=== PATIENT | male | born 1940 | race Caucasian/White ===

== ENCOUNTER 2020-07-28 08:36 | Outpatient (REF) | payer MEDICARE, SELFPAY ==
--- NOTE | ~2020-07-28 | MR_ITS ---
EXAMINATION: MR KNEE WITHOUT CONTRAST, LEFT CLINICAL INFORMATION: Severe pain, persistent pain. COMPARISON: X-ray of the left knee November 2019 TECHNIQUE: MRI of the knee without contrast was performed using routine sequences on a high-field scanner. FINDINGS: MENISCI: Medial Meniscus: There is some subtle intermediate increased signal in the posterior horn which appears to extend to the tibial articular surface on at least a single sagittal image 20 series 3 and 4. Findings are considered suspicious but not definitive for a small tear. Lateral Meniscus: Intact. LIGAMENTS: Cruciate: Intact. Collateral: Intact. EXTENSOR MECHANISM: Intact. ARTICULAR CARTILAGE/BONE: Patellofemoral Compartment: Normal. Medial Compartment: Normal. Lateral Compartment: Normal. JOINT FLUID AND BURSAE: Normal. MISCELLANEOUS: Mild nonspecific edema in the subcutaneous soft tissues anteriorly. MR/MR knee LT wo con IMPRESSION: Subtle findings in the medial meniscus suspicious but not definitive for a small meniscal tear.
--- NOTE | ~2020-07-28 | XR_ITS ---
EXAMINATION: LEFT LOWER EXTREMITY PRE-MRI. CLINICAL INFORMATION: History of metallic foreign body left lower extremity. COMPARISON: None TECHNIQUE: 2 views. FINDINGS: There are no radiopaque metallic foreign body seen in the left lower extremity. The visualized tibia and fibula the soft tissues unremarkable. XR/XR pre mri screening IMPRESSION: Unremarkable left lower tibia and fibula.
== END 2020-07-28 08:37 | disposition home or self-care (01) ==
LOC: HO.MRI 08:36
PROVIDERS: PCP Internal Medicine; Visit Provider Internal Medicine
DX: M25.562 Pain in left knee (principal)
CPT/HCPCS: 73721

== ENCOUNTER 2020-08-02 14:00 | Outpatient (REF) | payer MEDICARE, SELFPAY ==
--- NOTE | ~2020-08-02 | MR_ITS ---
EXAMINATION: MR LUMBAR SPINE WITHOUT CONTRAST CLINICAL INFORMATION: 80-year-old with complaints of low back pain and left hip pain. Evaluate for spinal stenosis, disc herniation. COMPARISON: None TECHNIQUE: MRI of the lumbar spine was obtained using routine sequences without contrast. FINDINGS: Coronal Alignment:?Mild lumbar dextrocurvature noted, convex to the right at approximately L3. Possible lower thoracic dextrocurvature. Sagittal Alignment:?Normal. Lumbosacral Junction:?Normal. Vertebral Bodies: Normal height. Bone Marrow: There is a 4 mm focus of signal loss in the superior articulating facet of L2 on the left which is statistically, likely a bone island. No suspicious marrow replacing process. Conus Medullaris:?Terminates at L1.?Morphology and signal is normal. Intradural Nerve Roots: Within normal limits. L5-S1: Feqxvutl-uh-pliixq disc space height loss asymmetric to the right with disc desiccation, type I and type II marrow signal changes along the endplates and tiny Schmorl's nodes. Slight disc bulging is noted with minimal spondylosis asymmetric to the right with hzcf-qy-qcykahtc facet hypertrophic change, right more than left, with moderate right-sided neural foraminal stenosis without significant canal stenosis. Disc bulging contacts the exiting right L5 nerve root. L4-L5: Mild loss of disc space height is noted with disc desiccation, with type II marrow signal changes along the endplates. There is mild diffuse disc bulging asymmetric to the left with the moderate bilateral facet arthropathy and ligamentum flavum thickening, with mild crowding of the subarticular zones bilaterally without significant central spinal canal stenosis. There is tkgv-mf-kbckmmrl bilateral neural foraminal stenosis, left more than right with disc bulging contacting the exiting left L4 nerve root. L3-L4: Moderate loss of disc space height is noted asymmetric to the left with disc desiccation and type I and type II marrow signal changes along the endplates with small Schmorl's nodes. There is a qqambhx-kx-osxdq subarticular extruded disc herniation with caudal migration and krovrofi-wo-hrevje mass effect on the dural sac centrally and asymmetric to the right of midline with narrowing of the right subarticular and lateral recesses. The right L4 nerve root is intradural at this level. There is a prominent dorsal epidural fat pad contributing to ddhglpjn-jv-srpbci central spinal canal stenosis. There is fvax-qg-thrqhzmq facet arthropathy and ligamentum flavum thickening, left more than right, with underlying disc bulging and left lateral foraminal disc herniation encroaching on the neural foramina, left more than right. There is a 1 cm ovoid focus of soft tissue signal which is isointense with disc material at the outer margin of the left neural foramen suggesting an extruded disc fragment which, in conjunction with the above findings, result in moderate impingement on the exiting left L3 nerve root and amwnaxvj-gm-qzxzsh left-sided foraminal compromise. L2-L3: Disc space height and signal are well-maintained. There is a small left-sided foraminal disc protrusion without neural impingement. No significant spondylosis. Minor facet arthropathy noted with mild left-sided neural foraminal narrowing. No significant canal stenosis. L1-L2: Aapa-tt-iebgelpw loss of disc space height and disc desiccation are noted with anterolateral spondylosis asymmetric to the right, with mild Schmorl's nodes and type I and type II marrow signal changes along the endplates. Tiny ockofcg-mj-tzdp central disc protrusion noted. Tiny right inferior foraminal disc protrusion. No significant facet arthropathy, canal or neuroforaminal stenosis. T12-L1: Disc space height and signal are well maintained with minor spondylosis. Mild disc degenerative change with disc desiccation and Schmorl's nodes at T11-12. Paraspinal/Retroperitoneal: The paraspinal soft tissues appear unremarkable. MR/MR lumbar spine wo con IMPRESSION: 1. Mild lumbar dextrocurvature. 2. Multilevel thoracolumbar DDD with multilevel spondylosis and disc bulging. Exkleyc-bn-awnzy subarticular extruded disc herniation with caudal migration at L3-4 with encroachment on the right lateral recess, with pntvdmsj-qf-iljnkf central spinal canal compromise at this level. 3. Disc bulging asymmetric to the left at L3-4 with left lateral foraminal/extraforaminal disc herniation and suspicion for a 1 cm extruded disc fragment adjacent to the outer margin of the left neural foramen, with compromise of the exiting left L3 nerve root as discussed above. 4. Multilevel bilateral facet arthropathy as discussed above. Moderate right-sided neural foraminal stenosis at L5-S1 and xdkt-ax-rdilqmcu neural foraminal stenosis at L4-5, left more than right. 5. Probable small bone island in the superior articulating facet of L2 on the left.
== END 2020-08-02 14:01 | disposition home or self-care (01) ==
LOC: HO.MRI 14:00
PROVIDERS: Visit Provider Internal Medicine
DX: M54.5 Low back pain (principal)
CPT/HCPCS: 72148

== ENCOUNTER 2020-08-07 07:39 | Outpatient (REF) | payer MEDICARE, SELFPAY ==
--- NOTE | ~2020-08-07 | XR_ITS ---
EXAMINATION: KNEE X-RAY CLINICAL INFORMATION: Knee pain COMPARISON: Left knee x-ray November 2019 TECHNIQUE: Standing AP view of both knees and lateral and sunrise view of the left kidney FINDINGS: Left knee: Bone alignment is normal. No fracture or dislocation is seen. Joint spaces are normal. There is no joint effusion. Standing AP view of the right knee is unremarkable. XR/XR knee LT 2V IMPRESSION: Unremarkable exam.
--- NOTE | ~2020-08-07 | XR_ITS ---
EXAMINATION: KNEE X-RAY CLINICAL INFORMATION: Knee pain COMPARISON: Left knee x-ray November 2019 TECHNIQUE: Standing AP view of both knees and lateral and sunrise view of the left kidney FINDINGS: Left knee: Bone alignment is normal. No fracture or dislocation is seen. Joint spaces are normal. There is no joint effusion. Standing AP view of the right knee is unremarkable. XR/XR knee standing BI IMPRESSION: Unremarkable exam.
== END 2020-08-07 07:40 | disposition home or self-care (01) ==
LOC: HO.HOSX 07:39
PROVIDERS: Visit Provider Orthopaedic Surgery
DX: M25.562 Pain in left knee (principal); M54.16 Radiculopathy, lumbar region
CPT/HCPCS: 73560; 73565; 99202

== ENCOUNTER → 2020-08-17 08:06 | Outpatient (BNVA) | payer MEDICARE, SELFPAY | PROVIDERS: PCP Internal Medicine; Visit Provider Anesthesiology | DX: M47.812 Spondylosis without myelopathy or radiculopathy, cervical region (principal); M50.30 Other cervical disc degeneration, unspecified cervical region; Z79.899 Other long term (current) drug therapy | CPT/HCPCS: 99202 ==

== ENCOUNTER 2020-08-20 18:21 | Inpatient (IN) | payer MEDICARE, SELFPAY ==
--- NOTE | 2020-08-20 | ECG_ITS ---
Test Reason : SOB Blood Pressure : / mmHG Vent. Rate : 066 BPM Atrial Rate : 066 BPM P-R Int : 152 ms QRS Dur : 094 ms QT Int : 382 ms P-R-T Axes : 050 010 020 degrees QTc Int : 400 ms Normal sinus rhythm Normal ECG When compared with ECG of 20-AUG-2020 21:25, No significant changes seen Referred By: Durna Arndt Electronically Signed By:Eliazar Arrington
--- NOTE | ~2020-08-20 | XR_ITS ---
EXAMINATION: XR CHEST CLINICAL INFORMATION: Hypoxia. COMPARISON: Chest radiograph dated 08/29/2020. TECHNIQUE: Frontal view of the chest was obtained. FINDINGS: Diffuse interstitial prominence with bibasilar airspace opacities, slightly increased when compared to the prior examination. No pleural effusion or pneumothorax. Stable cardiomediastinal silhouette. XR/XR chest 1V IMPRESSION: Mild interstitial prominence with bibasilar airspace opacities, slightly increased when compared to the prior examination.
--- NOTE | ~2020-08-20 | CT_ITS ---
EXAMINATION: CT CERVICAL SPINE WITH CONTRAST CLINICAL INFORMATION: Right arm weakness. COMPARISON: None TECHNIQUE: Axial images obtained through the cervical spine. Coronal and sagittal reformatted images are performed at the CT scanner This CT examination was performed using dose optimization techniques as appropriate, variously including the following: *Automated exposure control *Adjustment of mA and/or kV according to patient size (this includes techniques or standardized protocols for targeted exams where dose is matched to indication/reason for exam; i.e. extremities or head) *Use of iterative reconstruction technique DLP: 402 mGy-cm FINDINGS: The cervical vertebrae have normal height. No fracture bone destruction. There is multilevel degenerative spondylosis. There is cervical disc height narrowing from C2-C3 through the C5-C6 disc levels. Most significant at C5-C6 with areas near updl-fl-lcay contact of the endplates, irregularity of endplates and anterior and posterior endplate spurs. There is also bilateral multilevel facet joint arthrosis through these disc levels. This is most significant on the left at C2-C3 and on the right at C4-C5 and C5-C6. Spinal levels: C2-C3: Mild cervical disc height narrowing. No focal disc protrusion or central canal stenosis. Neural foramina are open. C3-C4: Marked cervical disc height narrowing. No focal disc protrusion. No central canal stenosis. Degenerative change of facet joints bilateral, worse on the left than the right. Mild narrowing of the right neural foramina. C4-C5: Marked cervical disc height narrowing. No focal disc protrusion. No central canal stenosis. Degenerative change of facet bilaterally. The neural foraminal are open. C5-C6: Severe cervical disc height narrowing. No focal disc protrusion. No central canal stenosis. Mild narrowing of the neural foramina bilaterally. C6-C7: Mild cervical disc height narrowing. No central canal stenosis. No focal disc protrusion. Neural foramina are open. C7-T1: Normal. CT/CT cervical spine w con IMPRESSION: Multilevel degenerative spondylosis of the spine. Mild narrowing of the neural foramina bilaterally at C5-C6 and mild narrowing of the right neural foramina at C3-C4. No focal disc protrusion or central canal stenosis.
--- NOTE | ~2020-08-20 | CT_ITS ---
EXAMINATION: CT PULMONARY EMBOLISM STUDY CLINICAL INFORMATION: Elevated d-dimer. Covid positivity. Hypoxia. COMPARISON: 08/20/2020. TECHNIQUE: Contiguous helical images of the chest were obtained following the administration of IV contrast. Multiplanar reconstructions were performed. MIPS were obtained and reviewed. DLP: 326 mGy-cm. CONTRAST: 65 mL of Omnipaque 350 were administered without incident. FINDINGS: The heart is of normal size. There is no pericardial effusion. The great vessels are unremarkable. Specifically, there is no pulmonary arterial filling defect. There is no CT evidence for pulmonary embolism. There are no chest wall masses. Review of lung windows demonstrates that there are neither pleural effusions nor pneumothoraces. Within both lower lobes, there is ground glass opacification within the posterior basal segments. There are no pulmonary parenchymal nodules. Limited evaluation of the upper abdomen demonstrates that the liver is of normal size and attenuation without focal lesions. Normal adrenal glands are identified. CT/CT angio chest PE protocol IMPRESSION: No CT evidence for pulmonary embolism. Automated exposure control (Care Dose) Adjustment of the mA and/or kv according to patient size (this includes techniques or standardized protocols for targeted exams where dose is matched to indication / reason for exam; i.e. extremities or head).
--- NOTE | ~2020-08-20 | XR_ITS ---
EXAMINATION: CR X-RAY SHOULDER 3 VIEW BILATERAL CLINICAL INFORMATION: Bilateral shoulder pain, decreased range of motion. COMPARISON: None TECHNIQUE: 3 views each of the bilateral shoulders were obtained. FINDINGS: There is no acute fracture or dislocation. The joint spaces are unremarkable. Tiny calcification is seen at the right rotator cuff insertion. The soft tissues are unremarkable. XR/XR shoulder RT min 2V IMPRESSION: 1. Tiny calcification at the right rotator cuff insertion is likely degenerative in nature. No acute abnormality or significant degenerative joint changes bilaterally.
--- NOTE | ~2020-08-20 | XR_ITS ---
EXAMINATION: XR CHEST CLINICAL INFORMATION: Covid follow-up COMPARISON: Chest x-ray August 12, 2020 TECHNIQUE: Frontal view of the chest was obtained. FINDINGS: Stable cardiac silhouette. Lung volumes are mildly decreased. Interval development of subtle coarsening of the interstitial markings within the left lower lobe with similar linear opacity of the right lung base. No pleural effusion or pneumothorax. XR/XR chest 1V IMPRESSION: Right basilar atelectasis with interval development/worsening of left basilar atelectasis versus viral infiltrate. Clinical correlation recommended.
--- NOTE | ~2020-08-20 | XR_ITS ---
EXAMINATION: XR CHEST CLINICAL INFORMATION: Chest pain and shortness of breath COMPARISON: None TECHNIQUE: Frontal view of the chest was obtained. FINDINGS: Aside from bibasilar atelectasis, no significant abnormality is noted involving the heart, lungs, mediastinum, bony thorax or soft tissues. XR/XR chest 1V IMPRESSION: Bibasilar atelectasis. No acute intrathoracic disease.
--- NOTE | ~2020-08-20 | CT_ITS ---
EXAMINATION: CT CHEST WITHOUT CONTRAST CLINICAL INFORMATION: Hypoxia. COMPARISON: Chest CT from 08/21/2020. Recent chest radiographs. TECHNIQUE: Multidetector volumetric CT imaging of the chest was done. Axial MIP volume rendering provided. Sagittal and coronal reformatted images were obtained. This CT examination was performed using dose optimization techniques as appropriate, variously including the following: *Automated exposure control *Adjustment of mA and/or kV according to patient size (this includes techniques or standardized protocols for targeted exams where dose is matched to indication/reason for exam; i.e. extremities or head) *Use of iterative reconstruction technique DLP: 249 mGy-cm FINDINGS: LUNGS AND PLEURA: Trachea and central airways are widely patent and normal in caliber. Compared to 08/21/2020, there are several new, scattered, patchy groundglass and/or airspace opacities in both lungs, including anterior right lung apex (image 87, series 7), posterior left apex, lingula and medial left upper lobe. Mild atelectasis in dependent aspect of each lower lobe. No significant pleural fluid is detected. No pneumothorax. CARDIOVASCULAR: The heart size is normal. Moderate atherosclerotic calcification of coronary arteries. Pulmonary arteries are normal in caliber. Thoracic aorta atherosclerosis without aneurysm. No pericardial effusion. MEDIASTINUM AND LOWER NECK: The esophagus and visualized portion of the thyroid gland are unremarkable. No mediastinal mass. No pneumomediastinum. LYMPHATICS: No axillary or internal mammary lymphadenopathy. The mediastinal lymph nodes are in the normal size range. No hilar lymphadenopathy. UPPER ABDOMEN: No acute abnormalities in the visualized portion of the upper abdomen. SKELETAL AND CHEST WALL: Mild spondylosis of the mid to lower thoracic spine. No suspicious bone lesion. CT/CT chest wo con IMPRESSION: * Compared to prior chest CT of 08/21/2020, there are several new patchy pulmonary opacities, likely from Covid pneumonia. * Atherosclerotic disease of coronary arteries and thoracic aorta without aortic aneurysm.
--- NOTE | ~2020-08-20 | XR_ITS ---
EXAMINATION: CR X-RAY SHOULDER 3 VIEW BILATERAL CLINICAL INFORMATION: Bilateral shoulder pain, decreased range of motion. COMPARISON: None TECHNIQUE: 3 views each of the bilateral shoulders were obtained. FINDINGS: There is no acute fracture or dislocation. The joint spaces are unremarkable. Tiny calcification is seen at the right rotator cuff insertion. The soft tissues are unremarkable. XR/XR shoulder LT min 2V IMPRESSION: 1. Tiny calcification at the right rotator cuff insertion is likely degenerative in nature. No acute abnormality or significant degenerative joint changes bilaterally.
--- NOTE | ~2020-08-20 | XR_ITS ---
EXAMINATION: XR CHEST CLINICAL INFORMATION: Intubated, central line COMPARISON: CT chest 08/30/2020, chest radiographs 08/30/2020, 08/29/2020 TECHNIQUE: Portable supine AP view of the chest is performed. FINDINGS: ET tube approximately 3.8 cm above gil. Right internal jugular central line tip at right atrium. There are subtle left perihilar and basilar airspace opacities again seen. No pneumothorax or pneumomediastinum demonstrated on this portable exam with supine positioning. Vascularity stable. The mediastinal contours and bony structures are unremarkable. XR/XR chest 1V IMPRESSION: 1. ET tube 3.8 cm above gli. 2. Right internal jugular central line tip at right atrium. 3. Left perihilar and bibasilar opacities similar to previous exam.
[2020-08-20 18:40] VITALS: BP 129/56; PULSE 67; RESP 18; TEMP 36.6; O2SAT 94; BMI 29.9
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
--- NOTE | 2020-08-20 20:52 | ECG_ITS ---
Test Reason : ARM PAIN Blood Pressure : / mmHG Vent. Rate : 070 BPM Atrial Rate : 070 BPM P-R Int : 150 ms QRS Dur : 082 ms QT Int : 372 ms P-R-T Axes : 025 010 021 degrees QTc Int : 401 ms Normal sinus rhythm Normal ECG When compared to the previous EKG of No significant changes seen Referred By: Duran Arndt Electronically Signed By:Eliazar Arrington
[2020-08-20] MEDS: Acetaminophen 325 MG TABLET 975 MG PO (21:00)
[2020-08-20] MEDS: oxyCODONE HCl Immed Release 5 MG TABLET PO (21:00)
[2020-08-20 21:09] LABS: MANUAL DIFF FLAG NO
[2020-08-20 21:10] LABS: Basophils Percent Auto 0.5 % (0-2); Eosinophils Absolute Auto 0.1 X10*3/uL (0.0-0.4); Eosinophils Percent Auto 1.3 % (0-4); Hematocrit 40.9 % (42-52); Hemoglobin 13.5 g/dl (14.0-18.0); Imm Gran Abs Auto 0.04 X10*3/uL (0.00-0.03); Lymphocytes Absolute Auto 1.2 X10*3/uL (1.2-4.9); Lymphocytes Percent Auto 29.8 % (20-40); Mean Corpuscular Hemoglobin 31.1 pg (27.0-33.0); Mean Corpuscular Volume 94.2 fL (80-98); Mean Platelet Volume 9.8 fL (9.4-12.4); Monocytes Absolute Auto 0.7 X10*3/uL (0.1-1.2); Monocytes Percent Auto 18.4 % (2-11); Neutrophils Absolute Auto 1.9 X10*3/uL (2.0-8.3); Platelet Count 136 X10*3/uL (160-400); Red Blood Count 4.34 X10*6/uL (4.60-5.80); Red Cell Distribution Width 13.5 % (11.0-16.0); White Blood Count 3.9 X10*3/uL (4.8-10.8)
[2020-08-20 21:22] LABS: D Dimer 229 NG/ML
[2020-08-20 21:34] LABS: Troponin-I High Sensitivity 5.9 ng/L (<3.5-35.0)
[2020-08-20 21:38] LABS: Alanine Aminotransferase 54 U/L (0-40); Albumin Level 4.4 g/dL (3.5-5.0); Alkaline Phosphatase 158 U/L (39-117); Anion Gap 18 (12-20); Aspartate Amino Transferase 47 U/L (5-37); Bilirubin Direct 0.4 mg/dL (0.0-0.5); Blood Urea Nitrogen 22 mg/dL (9-16); Calcium 8.4 mg/dL (8.4-10.2); Carbon Dioxide 23 mmol/L (22-29); Chloride 102 mmol/L (96-108); Creatinine Clr Calc Pharmacy 45.3; Estimated Glomerular Filt Rate 58; Glucose Random 96 mg/dL (60-115); Potassium 4.2 mmol/L (3.3-5.1); Sodium 139 mmol/L (135-145); Total Protein 7.2 g/dL (6.5-8.0)
[2020-08-20 23:55] VITALS: BP 152/56; PULSE 65; RESP 12; O2SAT 92
[2020-08-21] VITALS (9 sets, daily range): BP systolic 143–159; BP diastolic 52–64; PULSE 60–104; RESP 16–22; TEMP 36.2–36.4; O2SAT 91–96
--- NOTE | 2020-08-21 00:09 | PC.NURSE ---
PT AT REST, PT HAS NOT EXPERIENCED ANY CHEST PAIN WHILE IN ER. PT HAS AN EXISTING INJURY TO LEFT SHOULDER AND KNEE THAT HAS AN INCREASED PAIN LEVEL TODAY. INCREASED WITH MOVEMENT.
[2020-08-21] MEDS: oxyCODONE HCl Immed Release 5 MG TABLET PO ×3 (00:40→21:50)
[2020-08-21 01:02] LABS: IDNOW Serial# 9DD0AD1C
[2020-08-21 01:04] LABS: COVID-19 Test Positive (Negative)
[2020-08-21 01:25] LABS: Troponin-I High Sensitivity 6.7 ng/L (<3.5-35.0)
--- NOTE | 2020-08-21 01:53 | PC.NURSE ---
PT REPORTS WEAKNESS, DIZZINESS AND DYSPNEA WHEN STANDING TO USE URINAL. PT'S SPO2 DROPS TO MID 80'S WHEN SUPINE. PT BOOSED UP ON STRETCHER AND SEATED UPRIGHT, SPO2 IMPROVED TO 91%. PT'S SPO2 ON ROOM AIR HAS BEEN IN THE LOW 90'S WHILE IN ER.
--- NOTE | 2020-08-21 02:08 | PC.NURSE ---
PT WAS STANDING TO GET DRESSED AND SPO2 DROPPED TO 87% PT AMBULATED AROUND ROOM WITH PORTABLE SPO2 SENSOR, SPO2 REMAINED IN LOWER 90'S FOR LESS THAN 1 MINUTE, DROPPED TO MID 80'S PT DYSPNEIC AND TACHYPNEIC UNTIL RESTING BACK ON STRETCHER. MD ORDERED 2 LPM. PT'S SPO2 NOW 98% ON 2 LPM AND AT REST.
[2020-08-21] MEDS: 0.9 % Sodium Chloride 1,000 ML 999 ML IV (02:51)
[2020-08-21] MEDS: iohexoL 350 MG/ML 75 ML INFUS..BTL IV (03:02)
--- NOTE | 2020-08-21 07:24 | PC.NURSE ---
this rn in to see pt, vss, pt resting in bed requesting to stand. pt offered a chair and moved into recliner. pt sitting up watching tv- nad. aware of plan of care for admit. denied having any questions.
--- NOTE | 2020-08-21 07:59 | PC.NURSE ---
pt assisted to use urinal. 200cc output clear yellow urine
--- NOTE | 2020-08-21 09:54 | PC.NURSE ---
pt found ambulating around room. pt states he just wants to stand. pt redirected to chair, o2 95% on room air. pt assisted to use urinal 200cc output.
--- NOTE | 2020-08-21 11:19 | PM.IMHP ---
History of Present Illness Date of Service: 08/21/20 Chief Complaint: L leg / L shoulder pain This is a 80-year-old male with a past medical history as outlined below who presents to the hospital with complaints of left lower extremity and left shoulder pain which is chronic in nature but has progressively worsened. He also reports that he had trouble breathing and fevers at home and so he came to the emergency room. He reports that he has seen Orthopedics for his left knee pain and was subsequently referred to pain management as there was some disc herniation on the lumbar MRI as well. He reports that yesterday while he was sitting down in his chair he noted some sharp chest pains and associated shortness of breath. He also reported feeling feverish and so he came to the emergency room for further testing. He initially denies any known sick contacts, but upon further questioning he does report that his daughter whom he lives with may also have similar symptoms. He subsequent also reports that his granddaughter who is the pipeline superintendent for his daughter may have come down with COVID within the last 1-2 weeks. In the emergency room he was noted to be hypoxic on RA -- down to 89% which dropped to 87% on RA. He underwent a CTA of the chest which was negative for pulmonary embolism. He had too high sensitivity troponins which were flat. His pain did resolve but due to his hypoxia admission was requested. Review of Systems Review of Systems: General - denies fevers or chills, denies weakness or fatigue HEENT -denies blurred vision, denies headache, denies sore throat Cardiovascular - denies chest pain or palpitations, denies edema Respiratory - +SOB, +Cough - nonproductive Gastrointestinal - denies abdominal pain, nausea, vomiting, diarrhea - denies flank pain, denies dysuria, denies frequency or urgency Musculoskeletal - denies back pain, denies hip pain, denies knee pain, denies shoulder pain Neurological - denies any focal weakness or numbness Skin, denies any bruising or redness Psychiatric - denies any suicidal ideation, hallucinations, homicidal ideation Endocrinology - denies intolerance to hot / cold temperatures [facility] Medical History (Updated 08/21/20 @ 02:12 by Duran Arndt MD) Cervical radiculopathy Degeneration, intervertebral disc, cervical Hypercholesteremia Lumbar radiculopathy Spondylosis, cervical Surgical History (Updated 08/07/20 @ 08:30 by Caryl Sweeney CMA) Hx of tonsillectomy Social History (Updated 08/07/20 @ 08:31 by Caryl Sweeney CMA) Alcohol intake: never Smoked in Last 30 Days: No Use of substances other than those prescribed or required for medical reasons: No Advance Directives: No Advance Directives Information Provided: Yes Current occupational status: retired Meds Allergies Allergy/AdvReac Type Severity Reaction Status Date / Time No Known Allergies Allergy Mild NKA Verified 08/17/20 08:23 Active Medications: Current Medications Generic Name Dose Route Start Last Admin Trade Name Freq PRN Reason Stop Dose Admin Pharmacy Consult 1 each 08/21/20 02:27 Consult Rx Perform Med Rec MISCELLANE ONCE PRN Consult order Home Medications Medication Instructions Recorded Confirmed Last Taken Type naproxen 500 mg tablet 500 mg PO BID 08/17/20 08/21/20 Unknown History celecoxib 1 cap PO BID 08/21/20 08/21/20 Unknown History oxycodone 1 tab PO TID PRN 08/21/20 08/21/20 Unknown History simvastatin 1 tab PO DAILY 08/21/20 08/21/20 Unknown History Physical Exam Vital Signs and Narrative: Vital Signs: Last Vital Signs Temp 97.5 F 08/21/20 02:11 Pulse 78 08/21/20 09:51 Resp 16 08/21/20 09:51 BP 154/64 H 08/21/20 07:23 Pulse Ox 95 08/21/20 09:51 Body Mass Index 29.9 Const: Other: Constitutional - Awake and Alert, No apparent distress Eyes - PERRLA, EOMI Cardiovascular - S1S2, RRR, No edema Respiratory - Rhonchi Gastrointestinal - NT / ND; +BS; No rebound or guarding - No CVA tenderness Extremities - no calf tenderness bilaterally, no swelling; LUE - unable to move about the Musculoskeletal - Normal inspection, normal ROM Skin - Warm/Dry Neurological - Alert & oriented x3, No focal deficit Psychological - Appropriate affect Results Labs CBC and Chem 7: 08/20/20 21:04 08/20/20 21:04 Labs: Laboratory Results - last 24 hr 08/20/20 08/20/20 08/20/20 21:04 21:04 21:04 MCV 94.2 MCH 31.1 MCHC 33.0 RDW 13.5 Plt Count 136 L MPV 9.8 Immature Gran % (Auto) 1.0 H Neut % (Auto) 49.0 Lymph % (Auto) 29.8 [place] % (Auto) 18.4 H Eos % (Auto) 1.3 Baso % (Auto) 0.5 Lymph # (Auto) 1.2 [place] # (Auto) 0.7 Eos # (Auto) 0.1 Baso # (Auto) 0.0 Abs Immat Gran (auto) 0.04 H Absolute Neuts (auto) 1.9 L Absolute Nucleated RBC 0.000 Nucleated RBC % (auto) 0.0 D-Dimer 229 Hold Blue Top SEE NOTE Anion Gap 18 Estim Creat Clear Calc 45.3 Estimated GFR 58 Random Glucose 96 Calcium 8.4 Total Bilirubin 1.0 Direct Bilirubin 0.4 AST 47 H ALT 54 H Alkaline Phosphatase 158 H Troponin I High Sens Total Protein 7.2 Albumin 4.4 COVID-19 ([facility]) COVID-19 Clin Com 08/20/20 08/21/20 08/21/20 21:04 00:45 00:49 MCV MCH MCHC RDW Plt Count MPV Immature Gran % (Auto) Neut % (Auto) Lymph % (Auto) [place] % (Auto) Eos % (Auto) Baso % (Auto) Lymph # (Auto) [place] # (Auto) Eos # (Auto) Baso # (Auto) Abs Immat Gran (auto) Absolute Neuts (auto) Absolute Nucleated RBC Nucleated RBC % (auto) D-Dimer Hold Blue Top Anion Gap Estim Creat Clear Calc Estimated GFR Random Glucose Calcium Total Bilirubin Direct Bilirubin AST ALT Alkaline Phosphatase Troponin I High Sens 5.9 6.7 Total Protein Albumin COVID-19 ([facility]ILA) Positive A COVID-19 Clin Com See Note Imaging Radiologist's Impressions: Impressions Chest X-Ray 08/20/20 20:56 IMPRESSION: Bibasilar atelectasis. No acute intrathoracic disease. Chest CTA 08/21/20 02:26 IMPRESSION: No CT evidence for pulmonary embolism. Automated exposure control (Care Dose) Adjustment of the mA and/or kv according to patient size (this includes techniques or standardized protocols for targeted exams where dose is matched to indication / reason for exam; i.e. extremities or head). Assessment and Plan (1) COVID-19: Status: Acute This is a 80-year-old male with a past medical history of hyperlipidemia, left shoulder pain, left lower extremity pain who presents to the hospital after feeling feverish with associated left chest pain and shortness of breath. He is diagnosed with COVID-19 causing respiratory failure with hypoxia. 1. Acute Respiratory Failure with hypoxia secondary to COVID 19 Desaturated to 87% on RA while in the ED, now improved continue decadron 6mg iv x 10 days total monitor inflammatory biomakers CTA negative for PE may need home O2 evaluation 2. Leukopenia / thrombocytopenia due to COVID monitor 3. Mild transaminitis due to COVID monitor hold statin 4. Chest pain resolved HS trop-I neg x 2 EKG without any acute changes Full Code DVT pptx, Ibisnox Nominates his daughter Emili as HCP
[2020-08-21] MEDS: 0.9 % Sodium Chloride Flush 3 ML SYRINGE IVFLUSH (14:29)
--- NOTE | 2020-08-21 18:17 | PC.NURSE ---
attempt to call for report no answer
--- NOTE | 2020-08-21 18:29 | PC.NURSE ---
report given to imc rn
--- NOTE | 2020-08-21 20:18 | PC.NURSE ---
messaged the admitting MD for two lidoderm patches and something to help the patient sleep per patient request.
[2020-08-21] MEDS: Acetaminophen 325 MG TABLET 650 MG PO (21:53)
[2020-08-22] VITALS (7 sets, daily range): BP systolic 143–165; BP diastolic 60–65; PULSE 61–88; RESP 17–22; TEMP 36.1–36.8; O2SAT 93–95
[2020-08-22] MEDS: 0.9 % Sodium Chloride Flush 3 ML SYRINGE IVFLUSH ×3 (00:03→15:31)
[2020-08-22] MEDS: Simethicone 80 MG TAB.CHEW PO ×3 (04:09→18:14)
[2020-08-22 06:06] LABS: MANUAL DIFF FLAG NO
[2020-08-22 06:26] LABS: Basophils Percent Auto 0.2 % (0-2); Hematocrit 39.7 % (42-52); Hemoglobin 13.3 g/dl (14.0-18.0); Imm Gran Abs Auto 0.04 X10*3/uL (0.00-0.03); Imm Gran Pct Auto 0.6 % (0.0-0.4); Lymphocytes Absolute Auto 1.3 X10*3/uL (1.2-4.9); Lymphocytes Percent Auto 20.5 % (20-40); Mean Corpuscular HGB Conc 33.5 g/dl (31.0-36.0); Mean Corpuscular Hemoglobin 30.9 pg (27.0-33.0); Mean Corpuscular Volume 92.1 fL (80-98); Mean Platelet Volume 10.9 fL (9.4-12.4); Monocytes Absolute Auto 0.8 X10*3/uL (0.1-1.2); Monocytes Percent Auto 13.5 % (2-11); Neutrophils Absolute Auto 4.1 X10*3/uL (2.0-8.3); Neutrophils Percent Auto 65.2 % (45-73); Platelet Count 178 X10*3/uL (160-400); Red Blood Count 4.31 X10*6/uL (4.60-5.80); Red Cell Distribution Width 13.2 % (11.0-16.0); White Blood Count 6.2 X10*3/uL (4.8-10.8)
[2020-08-22] MEDS: dexAMETHasone sod phosphate 4 MG/ML VIAL 6 MG IVPUSH (08:58)
[2020-08-22] MEDS: oxyCODONE HCl Immed Release 5 MG TABLET PO ×2 (08:59→21:49)
--- NOTE | 2020-08-22 11:24 | MHC.CM.PN ---
IMM 08/22/20 Male 80 DX Chest pain L arm pain He lives with his dtr. 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 While he is hospitalized, other DTRS are caring for her. He is independent with all functional mobility. DP home no services family will provide transportation. Pt reports that he has a HCP. A copy has been requested. CM will follow.
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
[2020-08-22] MEDS: Enoxaparin Sodium 40 MG/0.4 ML SYRINGE SUBCUT (15:27)
[2020-08-22] MEDS: Acetaminophen 325 MG TABLET 650 MG PO (21:49)
[2020-08-23] VITALS: BP 158/64; PULSE 68; RESP 18; TEMP 36.4; O2SAT 90
[2020-08-23] MEDS: 0.9 % Sodium Chloride Flush 3 ML SYRINGE IVFLUSH ×3 (00:19→15:54)
[2020-08-23] MEDS: Simethicone 80 MG TAB.CHEW PO ×4 (01:59→20:52)
[2020-08-23 04:00] VITALS: BP 148/60; PULSE 68; RESP 17; TEMP 36.8; O2SAT 98
[2020-08-23] MEDS: Acetaminophen 325 MG TABLET 650 MG PO ×3 (05:26→20:51)
[2020-08-23 07:32] VITALS: BP 162/72; PULSE 69; RESP 20; TEMP 36.6; O2SAT 93
[2020-08-23] MEDS: dexAMETHasone sod phosphate 4 MG/ML VIAL 6 MG IVPUSH (07:42)
[2020-08-23] MEDS: oxyCODONE HCl Immed Release 5 MG TABLET PO ×3 (07:42→22:02)
[2020-08-23 08:54] LABS: Basophils Percent Auto 0.1 % (0-2); Eosinophils Percent Auto 0.1 % (0-4); Hematocrit 43.3 % (42-52); Hemoglobin 14.9 g/dl (14.0-18.0); Imm Gran Abs Auto 0.09 X10*3/uL (0.00-0.03); Imm Gran Pct Auto 0.5 % (0.0-0.4); Lymphocytes Absolute Auto 1.2 X10*3/uL (1.2-4.9); Lymphocytes Percent Auto 6.7 % (20-40); MANUAL DIFF FLAG NO; Mean Corpuscular HGB Conc 34.4 g/dl (31.0-36.0); Mean Corpuscular Hemoglobin 31.6 pg (27.0-33.0); Mean Corpuscular Volume 91.7 fL (80-98); Mean Platelet Volume 10.2 fL (9.4-12.4); Monocytes Percent Auto 5.8 % (2-11); Neutrophils Absolute Auto 14.9 X10*3/uL (2.0-8.3); Neutrophils Percent Auto 86.8 % (45-73); Platelet Count 193 X10*3/uL (160-400); Red Blood Count 4.72 X10*6/uL (4.60-5.80); Red Cell Distribution Width 13.2 % (11.0-16.0); White Blood Count 17.2 X10*3/uL (4.8-10.8)
[2020-08-23 09:35] LABS: Blood Urea Nitrogen 37 mg/dL (9-16)
[2020-08-23 09:36] LABS: Anion Gap 18 (12-20); Calcium 8.8 mg/dL (8.4-10.2); Carbon Dioxide 22 mmol/L (22-29); Chloride 101 mmol/L (96-108); Creatinine Clr Calc Pharmacy 52.2; Estimated Glomerular Filt Rate > 60; Glucose Random 112 mg/dL (60-115); Potassium 4.4 mmol/L (3.3-5.1); Sodium 137 mmol/L (135-145)
[2020-08-23 11:41] VITALS: BP 133/58; PULSE 81; RESP 20; TEMP 36.5; O2SAT 95
--- NOTE | 2020-08-23 11:45 | MHC.CM.PN ---
CM spoke with Dtr Emili Castillo. She received an update re discharge. She has concerns re Dads weakness @ home once discharge. Emotional support and encouragement provided. DP home vs STR if indicated. CM will continue to follow.
[2020-08-23] MEDS: Enoxaparin Sodium 40 MG/0.4 ML SYRINGE SUBCUT (14:27)
[2020-08-23 15:09] VITALS: BP 153/69; PULSE 85; RESP 20; TEMP 36.6; O2SAT 95
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
[2020-08-23 19:10] VITALS: BP 151/78; PULSE 85; RESP 20; TEMP 36; O2SAT 93
--- NOTE | 2020-08-23 21:00 | PC.NURSE ---
Patient went to MRI at 8pm . Per MRI department pt was done as the last one d/t covit positive. Patient unable to tolerate MRI tonight due to a lot of burping ,unable to lay flat. Patent back to his room [id number].
[2020-08-23] MEDS: Calcium Carbonate 750 MG TAB.CHEW PO (22:43)
[2020-08-24] VITALS (7 sets, daily range): BP systolic 123–177; BP diastolic 61–76; PULSE 61–73; RESP 16–23; TEMP 35.9–36.5; O2SAT 92–96
[2020-08-24] MEDS: 0.9 % Sodium Chloride Flush 3 ML SYRINGE IVFLUSH ×3 (00:23→16:04)
[2020-08-24] MEDS: Acetaminophen 325 MG TABLET 650 MG PO ×2 (03:13→08:58)
[2020-08-24] MEDS: dexAMETHasone sod phosphate 4 MG/ML VIAL 6 MG IVPUSH (08:57)
[2020-08-24] MEDS: oxyCODONE HCl Immed Release 5 MG TABLET PO ×2 (08:58→23:50)
[2020-08-24] MEDS: Simethicone 80 MG TAB.CHEW PO ×3 (08:58→23:51)
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
[2020-08-24] MEDS: Enoxaparin Sodium 40 MG/0.4 ML SYRINGE SUBCUT (14:40)
--- NOTE | 2020-08-24 16:25 | MHC.CM.PN ---
JOHN MERLOS @ [facility]. He is accepted tomorrow, pending Auth
[2020-08-24 20:32] LABS: Alanine Aminotransferase 50 U/L (0-40); Albumin Level 4.4 g/dL (3.5-5.0); Alkaline Phosphatase 133 U/L (39-117); Aspartate Amino Transferase 63 U/L (5-37); Bilirubin Direct 0.3 mg/dL (0.0-0.5); Bilirubin Total 0.9 mg/dL (0.0-1.0); Total Protein 7.6 g/dL (6.5-8.0)
[2020-08-24] MEDS: Morphine Sulfate 2 MG/ML CARTRIDGE IVPUSH (21:32)
[2020-08-25] VITALS (7 sets, daily range): BP systolic 125–177; BP diastolic 60–78; PULSE 78–90; RESP 16–93; TEMP 36.3–36.8; O2SAT 92–97
[2020-08-25] MEDS: Acetaminophen 325 MG TABLET 650 MG PO ×4 (00:02→21:00)
[2020-08-25] MEDS: 0.9 % Sodium Chloride Flush 3 ML SYRINGE IVFLUSH ×4 (00:06→20:54)
[2020-08-25] MEDS: Calcium Carbonate 750 MG TAB.CHEW PO (05:29)
[2020-08-25 07:31] LABS: Alanine Aminotransferase 49 U/L (0-40); Albumin Level 4.2 g/dL (3.5-5.0); Alkaline Phosphatase 116 U/L (39-117); Aspartate Amino Transferase 31 U/L (5-37); Bilirubin Direct 0.4 mg/dL (0.0-0.5); Bilirubin Total 1.1 mg/dL (0.0-1.0); Total Protein 7.3 g/dL (6.5-8.0)
[2020-08-25] MEDS: Simethicone 80 MG TAB.CHEW PO ×2 (08:23→21:00)
[2020-08-25] MEDS: dexAMETHasone sod phosphate 4 MG/ML VIAL 6 MG IVPUSH (08:23)
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
[2020-08-25] MEDS: oxyCODONE HCl Immed Release 5 MG TABLET PO ×2 (14:24→23:42)
[2020-08-25] MEDS: Enoxaparin Sodium 40 MG/0.4 ML SYRINGE SUBCUT (14:24)
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
--- NOTE | 2020-08-25 16:07 | MHC.CM.PN ---
Did not receive insurance auth for today, discharge to [facility] is placed on hold. Patient , MD, nurse and dtr Emili aware.
--- NOTE | 2020-08-25 18:42 | PC.NURSE ---
Patient OOB frequently today with this RN and PT. Patient able to ambulate without O2 without complaints of SOB. In recliner for majority of the day.
[2020-08-26] VITALS (8 sets, daily range): BP systolic 121–169; BP diastolic 61–91; PULSE 80–105; RESP 15–20; TEMP 36.4–37.6; O2SAT 90–94
[2020-08-26] MEDS: Acetaminophen 325 MG TABLET 650 MG PO ×3 (04:47→19:55)
[2020-08-26] MEDS: Morphine Sulfate 2 MG/ML CARTRIDGE 1 MG IVPUSH (06:26)
[2020-08-26] MEDS: 0.9 % Sodium Chloride Flush 3 ML SYRINGE IVFLUSH ×3 (08:51→19:47)
[2020-08-26] MEDS: dexAMETHasone sod phosphate 4 MG/ML VIAL 6 MG IVPUSH (08:51)
[2020-08-26] MEDS: oxyCODONE HCl Immed Release 5 MG TABLET PO ×3 (09:02→22:22)
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
--- NOTE | 2020-08-26 12:09 | MHC.CM.PN ---
Addendum entered by Sharon Morales 08/27/20 08:40: ON 08/26/20@ 12:25 HOURS, CM RECEIVED A MESSAGE FROM [facility] INDICATING THE PTS INSURANCE COMPANY, [employer], HAD DENIED THE REQUEST FOR PT TO GO TO SHORT TERM REHAB. CM INFORMED THE HOSPITALIST WHO ATTEMPTED TO CONTACT [facility] ([phone]) TO REQUEST A PEER TO PEER REVIEW HOWEVER THEY WERE CLOSED UNTIL FRIDAY. PER HOSPITALIST, PT WILL REMAIN THROUGH THE WEEKEND AND ANOTHER ATTEMPT FOR A PEER TO PEER REVIEW WILL BE MADE ON FRIDAY. CM DID COMPLETE HCP WITH THE PT. OF NOTE, PT WAS PHYSICALLY UNABLE TO SIGN THE DOCUMENT, THEREFORE CM SIGNED AT HIS REQUEST WITH WITNESSES. PT NAMED HIS DAUGHTER, BUSHRA CRISOSTOMO HIS AGENT. COPY IN ALLSCRIPTS AND PTS CHART. Original Note: CM SPOKE TO PTS DAUGHTER, BUSHRA CRISOSTOMO ([phone]) WHO REPORTS SHE WAS AWARE THE PT WAS MEDICALLY CLEARED TO GO TO STR. SHE WAS INFORMED THE INSURANCE COMPANY STILL HAS NOT PROVIDED AUTHORIZATION. BUSHRA REPORTS THE PT DOES NOT HAVE A HCP COMPLETED. CM WILL OFFER PT ASSISTANCE IN COMPLETING ONE. PTS MEDICARE RIGHTS WERE REVIEWED IT HAS BEEN SEVERAL DAYS SINCE FIRST DELIVERED. BUSH[facility] REPORTS UNDERSTANDING AND A COPY WILL BE GIVEN TO PT. PT WILL DC TO [facility] PENDING INSURANCE AUTH.
[2020-08-26] MEDS: Enoxaparin Sodium 40 MG/0.4 ML SYRINGE SUBCUT (14:05)
[2020-08-26] MEDS: Simethicone 80 MG TAB.CHEW PO (17:25)
[2020-08-27] MEDS: Acetaminophen 325 MG TABLET 650 MG PO ×3 (01:36→18:53)
[2020-08-27 03:29] VITALS: BP 125/55; PULSE 91; RESP 20; TEMP 37.6; O2SAT 92
[2020-08-27] MEDS: oxyCODONE HCl Immed Release 5 MG TABLET PO ×3 (05:03→20:18)
[2020-08-27 07:22] VITALS: BP 148/65; PULSE 88; RESP 18; TEMP 37.2; O2SAT 90
[2020-08-27] MEDS: dexAMETHasone sod phosphate 4 MG/ML VIAL 6 MG IVPUSH (07:54)
[2020-08-27] MEDS: 0.9 % Sodium Chloride Flush 3 ML SYRINGE IVFLUSH ×3 (07:55→23:34)
[2020-08-27] MEDS: Simethicone 80 MG TAB.CHEW PO (08:06)
[2020-08-27 10:59] VITALS: BP 129/61; PULSE 80; RESP 18; TEMP 36.2; O2SAT 90
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
[2020-08-27] MEDS: Enoxaparin Sodium 40 MG/0.4 ML SYRINGE SUBCUT (12:25)
[2020-08-27 15:29] VITALS: BP 160/72; PULSE 97; RESP 19; TEMP 37.5; O2SAT 94
[2020-08-27 19:06] VITALS: BP 170/74; PULSE 105; RESP 20; TEMP 37.7; O2SAT 90
[2020-08-27 23:53] VITALS: BP 146/68; PULSE 91; RESP 18; TEMP 37.6; O2SAT 94
[2020-08-28] VITALS (7 sets, daily range): BP systolic 104–155; BP diastolic 60–79; PULSE 88–108; RESP 16–20; TEMP 36.3–37.6; O2SAT 90–95
[2020-08-28] MEDS: Acetaminophen 325 MG TABLET 650 MG PO ×2 (01:48→14:11)
[2020-08-28] MEDS: LORazepam 2 MG/ML VIAL 0.5 MG IVPUSH (02:54)
[2020-08-28] MEDS: oxyCODONE HCl Immed Release 5 MG TABLET PO ×5 (06:34→18:17)
[2020-08-28] MEDS: 0.9 % Sodium Chloride Flush 3 ML SYRINGE IVFLUSH (07:49)
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
[2020-08-28 12:50] LABS: COVID-19 Test Positive (Negative)
[2020-08-28] MEDS: Enoxaparin Sodium 40 MG/0.4 ML SYRINGE SUBCUT (14:11)
--- NOTE | 2020-08-28 14:20 | MHC.CM.PN ---
Per MD, Patient will be medically cleared for dc to STR/SNF today at 6 PM. Patient will dc to [facility] today at 6 PM, via [facility]. Patient/Daughter/HCP/Emili @ [phone] are aware of and in agreement with the dc plan. Last IMM addressed on 08/26/20.
[2020-08-28] MEDS: Simethicone 80 MG TAB.CHEW PO (15:46)
[2020-08-28] MEDS: polyethylene glycoL 3350 17 GM POWD.PACK PO (16:15)
--- NOTE | 2020-08-28 19:12 | PC.NURSE ---
Discharge cancelled today . Pt has new order for neurology consult to evaluate pt's weakness . Pt c/o sob ,oxygen saturation 90% on room air. Rehab was notified that pt is not being discharged today.Daughter Emili was notified that pt is not being discharged today ,she was updated on the plan of care
--- NOTE | 2020-08-28 20:22 | P.CONOP_ITS ---
History of Present Illness HPI Consult date: 08/28/20 Chief complaint: chest pain - left arm pain Narrative: This is a 80 yo male who is admitted to the medical service for acute respiratory distress, COVID-19 +. He recently started having right shoulder pain. He states he fell, leaning onto the right shoulder. He denies other injuries. He is right hand dominant. Denies left shoulder pain. No treatment on right shoulder that he can recall. Review of Systems Review of Systems: Yes all other systems are reviewed and are negative [facility] Past Medical History Medical History (Updated 08/25/20 @ 15:45 by Dave Mckeon MD) Cervical radiculopathy Degeneration, intervertebral disc, cervical Hypercholesteremia Lumbar radiculopathy Spondylosis, cervical Surgical History Surgical History Hx of tonsillectomy Social History Social History (Updated 08/07/20 @ 08:31 by Caryl Sweeney CMA) Household Members: Children Housing: House Do you presently have visiting nurse or other home services: No Alcohol intake: never Smoking Status: Never smoker Smoked in Last 30 Days: No Use of substances other than those prescribed or required for medical reasons: No Currently Displaying Signs/Symptoms of Drug Intoxication Withdrawal: No Have you been hit, kicked, punched, or otherwise hurt by someone within the past year? If so, by whom?: No Do you feel safe in your current relationship?: No Current Relationship Is there a partner from a previous relationship who is making you feel unsafe now?: No Are you made to feel afraid or neglected: No Advance Directives: No Advance Directives Information Provided: Yes Do you have thoughts of harming others: None Do you have a plan to hurt others: No Plan Recently lost weight without trying: Unsure service: Yes Current occupational status: retired Meds Allergies Allergy/AdvReac Type Severity Reaction Status Date / Time No Known Allergies Allergy Mild NKA Verified 08/17/20 08:23 Active Medications: Current Medications Generic Name Dose Route Start Last Admin Trade Name Freq PRN Reason Stop Dose Admin Acetaminophen 650 mg 08/21/20 13:52 08/28/20 14:11 Acetaminophen 325 Mg Tablet PO 650 mg Q6H PRN Administration Pain, Mild (Pain Scale 1-3) Calcium Carbonate 750 mg 08/23/20 22:24 08/25/20 05:29 Calcium Carbonate 750 Mg Tab.Chew PO 750 mg Q6H PRN Administration Gas Enoxaparin Sodium 40 mg 08/21/20 14:00 08/28/20 14:11 Enoxaparin Sodium 40 Mg/0.4 Ml Syringe SUBCUT 40 mg Q24H JERALD Administration Oxycodone HCl 5 mg 08/28/20 08:46 08/28/20 18:17 Oxycodone Hcl Immed Release 5 Mg Tablet PO 5 mg Q4H PRN Administration Pain, Severe (Pain Scale 7-10) Pharmacy Consult 1 each 08/21/20 02:27 Consult Rx Perform Med Rec MISCELLANE ONCE PRN Consult order Polyethylene Glycol 17 gm 08/28/20 15:45 08/28/20 16:15 Polyethylene Glycol 3350 17 Gm Powd.Pack PO 17 gm DAILY JERALD Administration Simethicone 80 mg 08/22/20 10:59 08/28/20 15:46 Simethicone 80 Mg Tab.Chew PO 80 mg QIDWMHS PRN Administration Gas Sodium Chloride 3 ml 08/21/20 16:00 08/28/20 15:46 0.9 % Sodium Chloride Flush 3 Ml Syringe IVFLUSH Not Given QSHIFT [facility] Home Medications Medication Instructions Recorded Confirmed Last Taken Type celecoxib 1 cap PO BID 08/21/20 08/21/20 Unknown History oxycodone 1 tab PO TID PRN 08/21/20 08/21/20 Unknown History simvastatin 1 tab PO DAILY 08/21/20 08/21/20 Unknown History Physical Exam Vital Signs: Vital Signs: Last Vital Signs Temp 97.3 F 08/28/20 19:14 Pulse 100 08/28/20 19:14 Resp 16 08/28/20 19:14 BP 115/62 08/28/20 19:14 Pulse Ox 95 08/28/20 19:14 Body Mass Index 29.9 Const: General: cooperative, comfortable, no acute distress, well developed and alert Extrem: Other: Right shoulder skin intact, tenderness along the bicipital groove. Pain with passive ROM, FF and Abduction. He has difficulty with AROM due to pain. NVI. xrays of the right shoulder negative for acute fractures or dislocations. Minimal degenerative changes. Results Labs Result Diagrams: 08/23/20 08:40 08/23/20 08:40 Labs: Abnormal lab results 08/28/20 Range/Units 12:30 COVID-19 (ATTILA) Positive A (Negative) H & H 08/20/20 08/22/20 08/23/20 Range/Units 21:04 05:32 08:40 Hgb 13.5 L 13.3 L 14.9 (14.0-18.0) g/dl Hct 40.9 L 39.7 L 43.3 (42-52) % All other labs normal. Procedures Joint Aspiration/Injection Joint Asp./Inject. 1: Side of body: right Joint Aspirated/Injected: shoulder (subacromial space injected) Ultrasound guidance: No Skin prep: other (Allcohol prep pap) Local anesthesia used: bupivacaine 0.5% (40 mg of depomedrol with 7cc of bupivacaine) Needle size used: 20G Medication injected, if any: Methylprednisolone Amount of medication injected (ml): 8 Patient tolerated procedure: well and no complications
[2020-08-29 03:26] VITALS: BP 133/64; PULSE 110; RESP 18; TEMP 38.2; O2SAT 90
[2020-08-29] MEDS: oxyCODONE HCl Immed Release 5 MG TABLET PO ×3 (04:22→19:22)
[2020-08-29 08:00] VITALS: BP 137/72; PULSE 88; RESP 20; TEMP 36.9; O2SAT 89
--- NOTE | 2020-08-29 10:56 | PM.NEUROCN ---
History of Present Illness Data of Consult Service Date: 08/29/20 Primary Care Provider: Chase Bravo MD HPI Reason for consult: Left arm pain and weakness - chronic This is 80-year-old man who was admitted with acute respiratory failure due to Covid 19 infection. I was asked to evaluate him because of chronic left upper extremity pain. The patient is to not very cooperative and the it didn't actually want to be examined and did not provide much information. He apparently had an injury in the past and has had chronic left upper extremity pain. Review of Systems Eyes: Eyes: Reports no additional eye complaints ENT: Reports system reviewed and no additional complaints, except as documented and Reports Normal hearing present Cardiovascular: Cardiovascular: Reports no additional cardiovascular complaints Respiratory: Respiratory: Reports no additional respiratory complaints Gastrointestinal: Gastrointestinal: Reports no additional gastrointestinal complaints Genitourinary: Genitourinary: Reports no additional male genitourinary complaints Musculoskeletal: Musculoskeletal: Reports no additional musculoskeletal complaints Integumentary/Breasts: Skin/Breast: Reports system reviewed and no additional complaints, except as docu Neurologic: Reports as per HPI and Reports Normal hearing present Psychiatric: Psychiatric: Reports as per HPI Endocrine: Endocrine: Reports no additional endocrine complaints Hematologic/Lymphatic: Hematologic/Lymphatic: Reports no additional hematologic/lymphatic complaints Allergic/Immunologic: Allergic/Immunologic: Reports no additional allergic/immunologic complaints [facility] Past Medical History Medical History (Updated 08/29/20 @ 11:00 by Emmanuel Frias MD) Cervical radiculopathy Degeneration, intervertebral disc, cervical Hypercholesteremia Lumbar radiculopathy Spondylosis, cervical Surgical History Surgical History Hx of tonsillectomy Social History Social History (Updated 08/07/20 @ 08:31 by Caryl Sweeney CMA) Household Members: Children Housing: House Do you presently have visiting nurse or other home services: No Alcohol intake: never Smoking Status: Never smoker Smoked in Last 30 Days: No Use of substances other than those prescribed or required for medical reasons: No Currently Displaying Signs/Symptoms of Drug Intoxication Withdrawal: No Have you been hit, kicked, punched, or otherwise hurt by someone within the past year? If so, by whom?: No Do you feel safe in your current relationship?: No Current Relationship Is there a partner from a previous relationship who is making you feel unsafe now?: No Are you made to feel afraid or neglected: No Advance Directives: No Advance Directives Information Provided: Yes Do you have thoughts of harming others: None Do you have a plan to hurt others: No Plan Recently lost weight without trying: Unsure service: Yes Current occupational status: retired Meds Allergies Allergy/AdvReac Type Severity Reaction Status Date / Time No Known Allergies Allergy Mild NKA Verified 08/17/20 08:23 Active Medications: Current Medications Generic Name Dose Route Start Last Admin Trade Name Freq PRN Reason Stop Dose Admin Acetaminophen 650 mg 08/21/20 13:52 08/28/20 14:11 Acetaminophen 325 Mg Tablet PO 650 mg Q6H PRN Administration Pain, Mild (Pain Scale 1-3) Calcium Carbonate 750 mg 08/23/20 22:24 08/25/20 05:29 Calcium Carbonate 750 Mg Tab.Chew PO 750 mg Q6H PRN Administration Gas Enoxaparin Sodium 40 mg 08/21/20 14:00 08/28/20 14:11 Enoxaparin Sodium 40 Mg/0.4 Ml Syringe SUBCUT 40 mg Q24H JERALD Administration Oxycodone HCl 5 mg 08/28/20 08:46 08/29/20 08:49 Oxycodone Hcl Immed Release 5 Mg Tablet PO 5 mg Q4H PRN Administration Pain, Severe (Pain Scale 7-10) Pharmacy Consult 1 each 08/21/20 02:27 Consult Rx Perform Med Rec MISCELLANE ONCE PRN Consult order Polyethylene Glycol 17 gm 08/28/20 15:45 08/28/20 16:15 Polyethylene Glycol 3350 17 Gm Powd.Pack PO 17 gm DAILY JERALD Administration Simethicone 80 mg 08/22/20 10:59 08/28/20 15:46 Simethicone 80 Mg Tab.Chew PO 80 mg QIDWMHS PRN Administration Gas Sodium Chloride 3 ml 08/21/20 16:00 08/28/20 23:00 0.9 % Sodium Chloride Flush 3 Ml Syringe IVFLUSH Not Given QSHIFT [facility] Home Medications Medication Instructions Recorded Confirmed Last Taken Type celecoxib 1 cap PO BID 08/21/20 08/21/20 Unknown History oxycodone 1 tab PO TID PRN 08/21/20 08/21/20 Unknown History simvastatin 1 tab PO DAILY 08/21/20 08/21/20 Unknown History Physical Exam Vital Signs: Vital Signs: Last Vital Signs Temp 98.5 F 08/29/20 08:00 Pulse 88 08/29/20 08:00 Resp 20 08/29/20 08:00 BP 137/72 08/29/20 08:00 Pulse Ox 89 L 08/29/20 08:00 Body Mass Index 29.9 Const: General: no acute distress, well developed, alert and awake Nutritional Appearance: well nourished Orientation/consciousness: oriented to person and oriented to place Limitations: no limitations HENMT: Head: Yes normal to inspection, Yes normocephalic and Yes atraumatic Ears: hearing grossly normal bilaterally General nose exam: Normal external nose present Face and sinus: Yes normal facial exam Mouth: Normal oral and palatal mucosa present Eyes: General: appearance normal, both eyes and all related structures Alignment and Position: alignment normal Periorbital: periorbital findings normal Eyelids: Yes eyelids normal Conjunctivae: conjunctivae normal Sclerae: sclerae normal Corneas: corneas normal Pupils: Equal, round and reactive pupils present and Pupil accommodation reflex normal EOM: EOMs intact bilaterally Direct Ophthalmoscopy: normal light reflex Neck: Neck: Yes normal visual inspection, Yes full ROM and Yes no meningeal signs Thyroid: Thyroid normal Carotids: normal carotid upstroke and bounding pulses Chest: Chest palpation & inspection: normal inspection of the chest Resp: Effort & Inspection: normal respiratory effort Auscultation: clear to auscultation bilaterally Cardio: Rate: regular rate Rhythm: regular rhythm Heart sounds: S1 normal heart sound present and S2 normal heart sound present Peripheral pulses: Peripheral pulses 2+ throughout GI: Inspection: Yes normal to inspection Percussion: Yes normal to percussion Auscultation: normal bowel sounds Rectal Exam - Male: Yes deferred Back/Spine/Pelvis: Cervical Spine: normal cervical lordosis and cervical ROM normal Thoracic/Lumbar Spine: thoracic and lumbar spine normal to inspection Skin: General skin exam: no rashes or lesions noted Neuro: Other: Left upper extremity weakness proximal greater than distal. Shoulder abduction is 2/5, Distal strength is 4 minus/5 General: oriented to person, oriented to place, tone normal, moves all extremities, Normal light touch and pain sensation, no meningeal signs, no focal motor deficits, CN's II-XI intact bilaterally, normal sensation to monofilament and deep tendon reflexes 2+ bilaterally Cranial nerves: Yes CN's II-XII intact bilaterally, Yes Equal, round and reactive pupils present, Yes Bilaterally intact EOM present, Yes Nystagmus not present, Yes Normal facial strength present, Yes Midline tongue present, Yes Normal gag reflex present, Yes Symmetric palate elevation present, Yes Normal hearing present and Yes Ability to bilaterally rotate head present Cognition (Neuro): normal cognition Speech: Other speech findings present (Neuro) Motor exam (neuro): no tremor noted, no asterixis, Motor fasciculations not present, Normal motor muscle tone present throughout and Motor abnormalities not present Sensory Exam: Bilaterally intact graphesthesia Deep tendon reflexes (DTR's): Right triceps reflex intensity grade: 2+, Left triceps reflex intensity grade: 2+, Rt Biceps (C5, C6): 2+, Left biceps reflex intensity grade: 2+, Right brachioradialis reflex intensity grade: 2+, Left brachioradialis reflex intensity grade: 2+, Right patellar reflex intensity grade: 2+, Left patellar reflex intensity grade: 2+, Right ankle reflex intensity grade: 2+ and Left ankle reflex intensity grade: 2+ Plantar Reflex Responses: downgoing: right, left and bilateral Pupils: Normal pupillary reactivity/response: bilateral Extrem: General: Yes normal to inspection, Yes normal exam except as noted and Yes no pedal edema Psych: Appearance: grossly normal Mental Status: mental status grossly normal Speech and movement: Normal speech and movement present and Clear speech present Affect: normal affect Attitude: cooperative Thought process: Normal thought process present Results Labs CBC & Chem 7: 08/23/20 08:40 08/23/20 08:40 Assessment and Plan (1) Cervical radiculopathy: Problem details: Probable left C56 radiculopathy Status: Acute MRI of the cervical spine if it has not been done. Depending on the results he may need epidural injections for pain block. Consider adding gabapentin 300 mg at bedtime (2) Degeneration, intervertebral disc, cervical: Status: Acute As above (3) COVID-19: Status: Acute
[2020-08-29 12:00] VITALS: BP 154/68; PULSE 110; RESP 20; TEMP 37.3; O2SAT 91
--- NOTE | 2020-08-29 12:49 | MHC.CM.PN ---
DP to [facility]. The Pt has had a Neuro consult. An MRI is recommended. The Pts Dtr Emili Castillo was contacted via phone for IMM delivery. Emiil stated that she is very upset re communication from Nursing. She requested a call from [facility] nurse manager subway. Lary Longo was notified via [employer]. including Dtrs contact information. The MD was notified. CM will follow.
[2020-08-29 15:11] LABS: Hemoglobin 13.7 g/dl (14.0-18.0); Mean Corpuscular Hemoglobin 30.5 pg (27.0-33.0); PLT CLUMP 1; Red Blood Count 4.49 X10*6/uL (4.60-5.80)
[2020-08-29 15:13] LABS: Hematocrit 40.7 % (42-52); Mean Corpuscular HGB Conc 33.7 g/dl (31.0-36.0); Mean Corpuscular Volume 90.6 fL (80-98); Mean Platelet Volume 12.1 fL (9.4-12.4); Platelet Count 106 X10*3/uL (160-400); Red Cell Distribution Width 14.3 % (11.0-16.0)
[2020-08-29 15:19] LABS: White Blood Count 30.1 X10*3/uL (4.8-10.8)
[2020-08-29 15:20] VITALS: BP 113/61; PULSE 70; RESP 20; TEMP 35.8; O2SAT 90
[2020-08-29] MEDS: Enoxaparin Sodium 40 MG/0.4 ML SYRINGE SUBCUT (15:34)
[2020-08-29] MEDS: Acetaminophen 325 MG TABLET 650 MG PO (15:41)
[2020-08-29 15:51] LABS: Alanine Aminotransferase 166 U/L (0-40); Albumin Level 3.2 g/dL (3.5-5.0); Alkaline Phosphatase 178 U/L (39-117); Aspartate Amino Transferase 103 U/L (5-37); Bilirubin Direct 2.5 mg/dL (0.0-0.5); Bilirubin Total 3.7 mg/dL (0.0-1.0); Total Protein 6.1 g/dL (6.5-8.0)
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
[2020-08-29 19:25] VITALS: BP 114/55; PULSE 108; RESP 20; TEMP 36; O2SAT 90
[2020-08-29] MEDS: 0.9 % Sodium Chloride Flush 3 ML SYRINGE IVFLUSH (21:38)
[2020-08-29 23:37] VITALS: BP 137/60; RESP 18; TEMP 37.2
[2020-08-30] VITALS (15 sets, daily range): BP systolic 79–106; BP diastolic 43–77; PULSE 54–140; RESP 18–39; TEMP 36.5–39.9; O2SAT 88–97
--- NOTE | 2020-08-30 | ECG_ITS ---
Test Reason : STEMI Blood Pressure : / mmHG Vent. Rate : 082 BPM Atrial Rate : 082 BPM P-R Int : 000 ms QRS Dur : 102 ms QT Int : 334 ms P-R-T Axes : 000 008 129 degrees QTc Int : 390 ms Atrial fibrillation with a competing junctional pacemaker ST elevation consider inferior injury or acute infarct ACUTE WI / STEMI Consider right ventricular involvement in acute inferior infarct Abnormal ECG When compared with ECG of 30-AUG-2020 08:51, Previous ECG has undetermined rhythm, needs review ST less elevated in Inferior leads ST no longer elevated in Anterior leads Referred By: Easton Polk Electronically Signed By:GARRETT RASHEED MD
--- NOTE | 2020-08-30 | ECG_ITS ---
Test Reason : ST ELEVTIONS Blood Pressure : / mmHG Vent. Rate : 081 BPM Atrial Rate : 000 BPM P-R Int : 000 ms QRS Dur : 086 ms QT Int : 370 ms P-R-T Axes : 000 018 132 degrees QTc Int : 429 ms Poor data quality, interpretation may be adversely affected Atrial fibrillation ST elevation consider inferior injury or acute infarct ST elevation consider anterior injury or acute infarct ACUTE CT / STEMI Consider right ventricular involvement in acute inferior infarct Abnormal ECG When compared with ECG of 20-AUG-2020 21:26, STEMI is now present Atrial fibrillation has replaced Normal sinus rhythm Referred By: Easton Polk Electronically Signed By:GARRETT RASHEED MD
[2020-08-30] MEDS: cefTRIAXone sodium 1 GM in 0.9 % Sodium Chloride 50 ML IV (00:35)
[2020-08-30] MEDS: Acetaminophen 325 MG TABLET 650 MG PO ×2 (04:22→06:00)
--- NOTE | 2020-08-30 05:09 | PC.NURSE ---
At 1:00 pt started to become hypoxic- 02 was in the mid 80s - pt was also tachy in the 130s and became more disoriented-MD notified. Pt was switched from 2L NC to 10L lo. Pts 02 came back to low 90's. Pt started to desat again and the 02 was increased to 15L via lo, respiratory was called and recommended staying with the lo at 15+. At 3:15 pts HR was still in the 130's MD notified. MD requested a rectal temp. Rectal temp was 103.8. PRN tylenol was given and the pt was cooled with many ice packs.
--- NOTE | 2020-08-30 05:33 | PM.EVENT ---
Event Note Date of Service: 08/30/20 Event Note: pt developed fever, hypoxia, and cultures rew gram =ve cocci. added vanco, and sepsis work up initiated
[2020-08-30] MEDS: Lactated Ringers 500 ML 1000 ML IVCONT ×2 (06:01→06:48)
[2020-08-30 07:00] LABS: Hematocrit 42.6 % (42-52); NRBC Pct Auto 0.1 /100WBC (0.0-0.2)
[2020-08-30 07:02] LABS: Hemoglobin 14.3 g/dl (14.0-18.0); Mean Corpuscular HGB Conc 33.6 g/dl (31.0-36.0); Mean Corpuscular Hemoglobin 31.1 pg (27.0-33.0); Mean Corpuscular Volume 92.6 fL (80-98); Mean Platelet Volume 13.4 fL (9.4-12.4); Red Cell Distribution Width 14.8 % (11.0-16.0)
[2020-08-30 07:32] LABS: PLT ABN DIST 1; Platelet Count 88 X10*3/uL (160-400)
--- NOTE | 2020-08-30 07:36 | PC.NURSE ---
Pt rectal temp at 05:30 was 103, MD notified and an additional dose of tylenol was given. Md also ordered LR 500ml at 1,000ml/hr. At 06:30 HR improved to 106 02 90% BP still down to 86/50. MD ordered an additional bolus of LR 500ml at 1,000 ml/hr. HR increased to 140-150s and pt changed to a flutter. Rectal temp was taken at 06:57 100.4. Reported information to day RN.
[2020-08-30 07:39] LABS: Anion Gap 26 (12-20); Blood Urea Nitrogen 105 mg/dL (9-16); Carbon Dioxide 20 mmol/L (22-29); Chloride 98 mmol/L (96-108); Creatinine Clr Calc Pharmacy 14.1; Estimated Glomerular Filt Rate 15; Glucose Random 145 mg/dL (60-115); Lactic Acid 5.9 mmol/L (0.5-2.0); Potassium 4.1 mmol/L (3.3-5.1); Sodium 140 mmol/L (135-145)
[2020-08-30 07:48] LABS: Atypical Lymph Absolute Manual 0.3 x10*3/uL; Atypical Lymphs Percent Manual 1 % (0-6); Band Neutrophils Percent 26 % (3-5); Lymphocytes Absolute Manual 0.3 X10*3/uL (0.6-4.8); Lymphocytes Percent Manual 1 % (20-40); Monocytes Absolute Manual 1.7 X10*3/uL (0.0-1.2); Monocytes Percent Manual 5 % (2-11); Neutrophils Absolute Manual 31.2 X10*3/uL (2.2-7.9); Neutrophils Percent Manual 67 % (45-73)
[2020-08-30 07:49] LABS: Large Platelet PRESENT; Platelet Estimate DECREASED (NORMAL); Platelet Morphology Comment NOTED; Toxic Vacuolation PRESENT
[2020-08-30] MEDS: 0.9 % Sodium Chloride 1,000 ML 999 ML IVCONT (07:49)
[2020-08-30 07:53] LABS: Howell Jolly Bodies PRESENT; Nucleated Red Blood Cells 1 /100WBC (0-0); RBC Morphology NOTED; Tear Drop Cells 1+ (0-2) /OIF
[2020-08-30] MEDS: vancomycin HCL 1,250 MG in 0.9 % Sodium Chloride 250 ML 166.67 MG IV (08:04)
[2020-08-30 08:39] LABS: Reflex Lactate? Lactic Acid Added
[2020-08-30] MEDS: propofoL 1,000 MG/100 ML VIAL 9.2 MG IVCONT (09:10)
[2020-08-30] MEDS: propofoL 200 MG/20 ML VIAL 100 MG IVPUSH (09:10)
--- NOTE | 2020-08-30 09:32 | PC.NURSE ---
Upon receiving report from overnight RN pt heart rhythm noted to be in the 140's this am with new onset of afib noted. Pt also hypotensive overnight on 2nd 500 cc ns iv bolus. fevers from 103.8 down to 100.8. sao2 in the low 90's on 15 l lo nc. Pt disoriented. Able to state name and vague with place. Overnight and daytime hospitalist made aware of pt condition. Third iv bolus of 1 L ordered and started. second peripheral iv started. vancomycin 1250 mg ordered. abg,stat chest ct. Further sepsis protocol workup also being ordered. multiple criticals received including wbc of 33.5, lactic of 5.9 and bun of 105. During stat chest ct heart rhythm down to 60's-70's with new onset st elevation. stat ekg ordered and transfer to icu. nurse to nurse complete. placed pt on 100% nonrebreather. nursing sound effects supervisor and graphic design manager notifed and assist with transfer.
[2020-08-30 09:38] LABS: ABG Base Excess -14.3 mmol/L; ABG HCO3 11 mmol/L (22-26); ABG pCO2 28 mmHg (32-45); ABG pCO2 TC 28 mmHg (32-45); ABG pH 7.21 (7.35-7.45); ABG pH TC 7.21 (7.35-7.45); ABG pO2 116 mmHg (83-108); ABG pO2 TC 117 (83-108)
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
--- NOTE | 2020-08-30 10:40 | W.PM.CCHP ---
Procedures Abscess I/D Consent for Procedure: Emergent-no informed consent obtained Central Line Placement Right IJ: Central Line Comments: Acute cardiogenic shock with need for pressors in CVP management and with ultrasound guidance and after sterile preparation easy entrance to the right internal jugular vein x1 without complication passing retrograde with Seldinger technique a J tipped guidewire over which dilator and then triple-lumen central venous pressure catheter and initial measurement was 13-14 mm mercury Consent for Procedure: Emergent-no informed consent obtained Time out performed: Yes Sterile Technique Used: Yes Patient placed on monitor/pulse ox: Yes MD prep: mask, gown and gloves Central line prep: Chlorhexidine scrub Ultrasound used for placement: Yes Central line lumen inserted: triple Post procedure: sutured in place, good blood return, all ports aspirated, flushed, capped and sterile dressing applied Post procedure x-ray: tip of catheter in good position and no pneumothorax seen Patient tolerated procedure: well and no complications Complications: none
[2020-08-30] MEDS: Midazolam HCl/NS 50 MG/50 ML PLAST..BAG IVCONT (10:46)
[2020-08-30] MEDS: Midazolam HCl/PF 2 MG/2 ML VIAL IVPUSH (10:46)
[2020-08-30] MEDS: Amiodarone HCL 900 MG in 0.9 % Sodium Chloride 500 ML 34.53 MG IVCONT (10:46)
--- NOTE | 2020-08-30 10:50 | W.PM.CCHP ---
Procedures Intubation Intubation Comments: Patient in acute hypoxemic respiratory failure with and evolving ST-elevation RI and intubation performed emergently with 7.5 ET tube using glide scope with excellent visualization of vocal cords passing through beautifully with bilateral breath sounds and excellent end-tidal CO2 response position confirmed on chest x-ray Consent for Procedure: Emergent-no informed consent obtained Time out performed: Yes Sedative: propofol Laryngoscope: fiber optic video scope ET tube size: 7.5 ET tube uncuffed: No Tube secured depth (cm): 25 Tube secured location: lips Tube placement confirmation: visualized tube passing through cords, equal breath sounds bilaterally, no breath sounds over epigastrium and confirmation by capnometry Patient tolerated procedure: well and no complications Intubation complications: none
--- NOTE | 2020-08-30 11:07 | MHC.CM.PN ---
Pt urgently transfered to ICU for cardiac intervention: will be life flighted to [facility] for further care. has been in contact with family.
[2020-08-30 12:28] LABS: White Blood Count 33.5 X10*3/uL (4.8-10.8)
--- NOTE | 2020-08-30 12:28 | P.CONCA_ITS ---
History of Present Illness History of Present Illness Date of Service: 08/30/20 Consult reason: other (STEMI, shock, respiratory failure) Chief complaint: chest pain - left arm pain Narrative: Fever involved in David's care at 08:30 when he was noted to have ST elevation on his telemetry monitoring. Subsequent 12 lead EKG confirmed anterior marked ST elevation along with involvement of the inferior wall. He was then transferred to ICU, was in respiratory distress and was immediately intubated by . He then quickly became hypotensive with sedation. He was in atrial fibrillation rapid ventricular response. Intravenous tPA was initiated due to his multiple medical issues, given positive blood cultures with Staph aureus lot yesterday marked leukocytosis as well as marked lactic acidosis and acute kidney injury. Patient continued to remain hypertensive. He was resuscitated with IV vasopressors initially with Marques-Synephrine and subsequently switched to Levophed prior to transfer to [facility]. Attempted to perform cardioversion x4 initially without amiodarone and subsequently after amiodarone bolus without successful conversion. Central venous line was placed in the right internal jugular vein by . His respiratory status improved after ventilation. Bedside echo was attempted to be performed was very poor quality. Reveals some septal hypokinesis however was in adequate study. On limited view the RV function appeared normal. Discussed with [facility] ICU team as well as [facility] Cardiology about patient's overall health status. Also discussed with patient's family. Patient's hemodynamic status improved after tPA infusion ST segment elevation improved with minor ST elevation still present in the inferior lead. Review of Systems Review of Systems: Yes Unobtainable due to mental condition PMFSH Past Medical History Medical History Cervical radiculopathy Degeneration, intervertebral disc, cervical Hypercholesteremia Lumbar radiculopathy Spondylosis, cervical Surgical History Surgical History Hx of tonsillectomy Social History Social History Household Members: Children Housing: House Do you presently have visiting nurse or other home services: No Alcohol intake: never Smoking Status: Never smoker Smoked in Last 30 Days: No Use of substances other than those prescribed or required for medical reasons: No Currently Displaying Signs/Symptoms of Drug Intoxication Withdrawal: No Have you been hit, kicked, punched, or otherwise hurt by someone within the past year? If so, by whom?: No Do you feel safe in your current relationship?: No Current Relationship Is there a partner from a previous relationship who is making you feel unsafe now?: No Are you made to feel afraid or neglected: No Advance Directives: No Advance Directives Information Provided: Yes Do you have thoughts of harming others: None Do you have a plan to hurt others: No Plan Recently lost weight without trying: Unsure service: Yes Current occupational status: retired [employer] Allergies Allergy/AdvReac Type Severity Reaction Status Date / Time No Known Allergies Allergy Mild NKA Verified 08/17/20 08:23 Active Medications: Current Medications Generic Name Dose Route Start Last Admin Trade Name Freq PRN Reason Stop Dose Admin Acetaminophen 650 mg 08/21/20 13:52 08/30/20 04:22 Acetaminophen 325 Mg Tablet PO 650 mg Q6H PRN Administration Pain, Mild (Pain Scale 1-3) Calcium Carbonate 750 mg 08/23/20 22:24 08/25/20 05:29 Calcium Carbonate 750 Mg Tab.Chew PO 750 mg Q6H PRN Administration Gas Ceftriaxone Sodium 1 gm/ 50 mls @ 100 mls/hr 08/29/20 22:00 08/30/20 01:30 Sodium Chloride IV Infused Q24H JERALD Infusion Vancomycin HCl 500 mg/ Sodium 110 mls @ 110 mls/hr 09/01/20 08:00 Chloride IV Q24H JERALD Alteplase, Recombinant 100 mg/ 100 mls @ 0 mls/hr 08/30/20 09:30 08/30/20 10:52 Sodium Chloride IV 100 mg/hr .Q0M JERALD 100 mls/hr Administration Protocol As Directed Amiodarone HCl 900 mg/ Sodium 518 mls @ 34.533 mls/hr 08/30/20 10:00 08/30/20 10:46 Chloride IVCONT 1 mg/min .Q15H1M JERALD 34.53 mls/hr Administration Protocol 1 MG/MIN Phenylephrine HCl 20 mg/ 252 mls @ 0 mls/hr 08/30/20 10:00 Sodium Chloride IVCONT .Q0M JERALD Protocol Per Protocol Midazolam HCl 50 mg in 50 mls @ 2 mls/hr 08/30/20 10:15 08/30/20 10:46 Versed IVCONT 2 mg/hr .Q24H JERALD 2 mls/hr Administration 2 MG/HR Norepinephrine Bitartrate 8 mg in 250 mls @ 0 mls/hr 08/30/20 10:15 08/30/20 10:50 Levophed IVCONT 0.3 mcg/kg/min .Q0M JERALD 43.12 mls/hr Administration Protocol Per Protocol Oxycodone HCl 5 mg 08/28/20 08:46 08/29/20 19:22 Oxycodone Hcl Immed Release 5 Mg Tablet PO 5 mg Q4H PRN Administration Pain, Severe (Pain Scale 7-10) Pharmacy Consult 1 each 08/21/20 02:27 Consult Rx Perform Med Rec MISCELLANE ONCE PRN Consult order Pharmacy Consult 1 each 08/30/20 05:28 Consult Rx Vancomycin Dosing MISCELLANE DAILY PRN Consult order Polyethylene Glycol 17 gm 08/28/20 15:45 08/30/20 08:05 Polyethylene Glycol 3350 17 Gm Powd.Pack PO Not Given DAILY JERALD Simethicone 80 mg 08/22/20 10:59 08/28/20 15:46 Simethicone 80 Mg Tab.Chew PO 80 mg QIDWMHS PRN Administration Gas Sodium Chloride 3 ml 08/21/20 16:00 08/30/20 07:49 0.9 % Sodium Chloride Flush 3 Ml Syringe IVFLUSH Not Given QSHIFT JERALD Sodium Chloride 3 ml 08/30/20 08:00 08/30/20 08:05 0.9 % Sodium Chloride Flush 3 Ml Syringe IVFLUSH Not Given QSHIFT [facility] Home Medications Medication Instructions Recorded Confirmed Last Taken Type celecoxib 1 cap PO BID 08/21/20 08/21/20 Unknown History oxycodone 1 tab PO TID PRN 08/21/20 08/21/20 Unknown History simvastatin 1 tab PO DAILY 08/21/20 08/21/20 Unknown History Physical Exam Vital Signs: Vital Signs: Last Vital Signs Temp 100.8 F H 08/30/20 08:05 Pulse 104 H 08/30/20 10:25 Resp 27 H 08/30/20 10:25 BP 103/43 L 08/30/20 10:25 Pulse Ox 97 08/30/20 10:25 Body Mass Index 29.9 Const: General: other (Sedated and intubated) HENMT: Head: Yes normocephalic and Yes atraumatic Neck: Neck: Yes trachea midline, Yes supple and Yes other (IJ line in the right knee with CVP 13-14 mm of mercury) Resp: Effort & Inspection: other (On mechanical ventilation) Auscultation: diminished lung sounds Cardio: Jugular venous distension: JVD Rhythm: abnormal rhythm irregularly irregular Heart sounds: S1 normal heart sound present and S2 normal heart sound present GI: Auscultation: normal bowel sounds Skin: General skin exam: no rashes or lesions noted Neuro: General: other (Cannot evaluate) Extrem: General: Yes no clubbing, cyanosis or edema Results Labs and Meds Result diagrams: 08/30/20 05:51 08/30/20 05:52 Lab results: Laboratory Results - last 24 hr 08/29/20 08/29/20 08/30/20 15:03 15:03 05:51 WBC 30.1 H* Cancelled RBC 4.49 L Cancelled Hgb 13.7 L Cancelled Hct 40.7 L Cancelled MCV 90.6 Cancelled MCH 30.5 Cancelled MCHC 33.7 Cancelled RDW 14.3 Cancelled Plt Count 106 L D Cancelled MPV 12.1 Cancelled Immature Gran % (Auto) Neut % (Auto) Lymph % (Auto) [place] % (Auto) Eos % (Auto) Baso % (Auto) Lymph # (Auto) [place] # (Auto) Eos # (Auto) Baso # (Auto) Abs Immat Gran (auto) Absolute Neuts (auto) Absolute Nucleated RBC 0.000 Cancelled Nucleated RBC % (auto) 0.0 Cancelled Neutrophils % (Manual) Band Neutrophils % Lymphocytes % (Manual) Atypical Lymphs % (Man) Monocytes % (Manual) Abs Neuts (Manual) Lymphocytes # (Manual) Atyp Lymphs # (Manual) Monocytes # (Manual) Nucleated RBCs Toxic Vacuolation Platelet Estimate Large Platelets Plt Morphology Comment RBC Morphology Tear Drop Cells Vel[place] Bodies Beeson Cells O2 Saturation ABG pH at Pt Temp ABG pH (Temp Correct) ABG pCO2 at Pt Temp ABG pCO2 (Temp Corrct ABG pO2 at Pt Temp ABG pO2 (Temp Correct ABG HCO3 ABG Base Excess (Actual) Sodium Potassium Chloride Carbon Dioxide Anion Gap BUN Creatinine Estim Creat Clear Calc Estimated GFR Random Glucose Lactic Acid Calcium Total Bilirubin 3.7 H Direct Bilirubin 2.5 H AST 103 H ALT 166 H Alkaline Phosphatase 178 H D Total Protein 6.1 L Albumin 3.2 L D 08/30/20 08/30/20 08/30/20 05:51 05:52 05:52 WBC 33.5 H* RBC 4.60 Hgb 14.3 Hct 42.6 MCV 92.6 MCH 31.1 MCHC 33.6 RDW 14.8 Plt Count 88 L MPV 13.4 H Immature Gran % (Auto) Cancelled Neut % (Auto) Cancelled Lymph % (Auto) Cancelled [place] % (Auto) Cancelled Eos % (Auto) Cancelled Baso % (Auto) Cancelled Lymph # (Auto) Cancelled [place] # (Auto) Cancelled Eos # (Auto) Cancelled Baso # (Auto) Cancelled Abs Immat Gran (auto) Cancelled Absolute Neuts (auto) Cancelled Absolute Nucleated RBC 0.040 H Nucleated RBC % (auto) 0.1 Neutrophils % (Manual) 67 Band Neutrophils % 26 H Lymphocytes % (Manual) 1 L Atypical Lymphs % (Man) 1 Monocytes % (Manual) 5 Abs Neuts (Manual) 31.2 H Lymphocytes # (Manual) 0.3 L Atyp Lymphs # (Manual) 0.3 Monocytes # (Manual) 1.7 H Nucleated RBCs 1 H Toxic Vacuolation PRESENT Platelet Estimate DECREASED Large Platelets PRESENT Plt Morphology Comment NOTED RBC Morphology NOTED Tear Drop Cells 1+ (0-2) [place] Bodies PRESENT Moe Cells 3+ ( O2 Saturation ABG pH at Pt Temp ABG pH (Temp Correct) ABG pCO2 at Pt Temp ABG pCO2 (Temp Corrct ABG pO2 at Pt Temp ABG pO2 (Temp Correct ABG HCO3 ABG Base Excess (Actual) Sodium 140 Potassium 4.1 Chloride 98 Carbon Dioxide 20 L Anion Gap 26 H BUN 105 H* D Creatinine 3.87 H Estim Creat Clear Calc 14.1 Estimated GFR 15 Random Glucose 145 H Lactic Acid 5.9 H* Calcium 8.0 L D Total Bilirubin Direct Bilirubin AST ALT Alkaline Phosphatase Total Protein Albumin 08/30/20 08/30/20 05:53 09:33 WBC RBC Hgb Hct MCV MCH MCHC RDW Plt Count MPV Immature Gran % (Auto) Neut % (Auto) Lymph % (Auto) [place] % (Auto) Eos % (Auto) Baso % (Auto) Lymph # (Auto) [place] # (Auto) Eos # (Auto) Baso # (Auto) Abs Immat Gran (auto) Absolute Neuts (auto) Absolute Nucleated RBC Nucleated RBC % (auto) Neutrophils % (Manual) Band Neutrophils % Lymphocytes % (Manual) Atypical Lymphs % (Man) Monocytes % (Manual) Abs Neuts (Manual) Lymphocytes # (Manual) Atyp Lymphs # (Manual) Monocytes # (Manual) Nucleated RBCs Toxic Vacuolation Platelet Estimate Large Platelets Plt Morphology Comment RBC Morphology Tear Drop Cells [place] Bodies Beeson Cells O2 Saturation 96.0 ABG pH at Pt Temp 7.21 L ABG pH (Temp Correct) 7.21 L ABG pCO2 at Pt Temp 28 L ABG pCO2 (Temp Corrct 28 L ABG pO2 at Pt Temp 116 H ABG pO2 (Temp Correct 117 H ABG HCO3 11 L ABG Base Excess (Actual) -14.3 Sodium Cancelled Potassium Cancelled Chloride Cancelled Carbon Dioxide Cancelled Anion Gap Cancelled BUN Cancelled Creatinine Cancelled Estim Creat Clear Calc Cancelled Estimated GFR Cancelled Random Glucose Cancelled Lactic Acid Calcium Cancelled Total Bilirubin Direct Bilirubin AST ALT Alkaline Phosphatase Total Protein Albumin EKG 1. Shows atrial fibrillation with marked ST elevation anterior leads and ST elevation inferior leads most suggestive of STEMI of the LAD territory with a wrap-around LAD EKG 2. Shows atrial fibrillation with resolved ST elevation in the anterior leads with persistent mild ST elevation in the inferior leads Imaging Radiologist's impression: Impressions Chest X-Ray 08/29/20 16:20 IMPRESSION: Right basilar atelectasis with interval development/worsening of left basilar atelectasis versus viral infiltrate. Clinical correlation recommended. Chest X-Ray 08/30/20 06:14 IMPRESSION: Mild interstitial prominence with bibasilar airspace opacities, slightly increased when compared to the prior examination. Chest CT 08/30/20 08:40 IMPRESSION: * Compared to prior chest CT of 08/21/2020, there are several new patchy pulmonary opacities, likely from Covid pneumonia. * Atherosclerotic disease of coronary arteries and thoracic aorta without aortic aneurysm. Chest X-Ray 08/30/20 11:19 IMPRESSION: 1. ET tube 3.8 cm above gil. 2. Right internal jugular central line tip at right atrium. 3. Left perihilar and bibasilar opacities similar to previous exam. Assessment and Plan (1) Acute ST elevation myocardial infarction: Problem details: Bedside echo after initiating tPA did not show a distinct wall motion abnormality and ejection fraction in limited views exceeded 55% with no primary valve or pericardial disease and right ventricular size and function appear to be preserved Status: Acute Acute ST-elevation myocardial infarction of the LAD territory with cardiogenic shock and pulmonary edema. Patient received tPA with improvement in ST elevation. Patient remained hypertensive require vasopressor support. Aspirin and statin will be initiated. Patient being transferred to [facility] for possibly requiring further hemodynamic support. He was not sent acutely to the [facility] because of his significant medical issues with sepsis positive blood cultures with Gram-positive cocci in clusters as well as acute kidney injury and lactic acidosis. Management was discussed with patient's daughter who understood but we did. Management also was discussed with critical care team. Spent 2 hours at patient's bedside in managing his acute illness as well as coordinating his care and discussing his case with ICU team at [facility] as well as Cardiology at [facility]. (2) Acute respiratory failure with hypoxia: Status: Acute Acute respiratory failure with hypoxia appears to be secondary to cardiogenic pulmonary edema. Underlying pneumonic process cannot be entirely ruled out. Patient currently on ventilator for the same. Due to hypertension, and not diuresed at this point time. Patient also had acute kidney injury. If remains significantly hypoxemic and appears to have pulmonary edema may need fu rther consultation renal team to assess for renal replacement therapy. Patient has been accepted to [facility]. (3) Atrial fibrillation with slow ventricular response: Problem details: Received loading dose of amiodarone and is on 0.5 milligrams/minute because of blood pressure intolerance at higher dose and cardioversion at 200 joules times to fail to restore sinus rhythm. Status: Acute Atrial fibrillation initially with rapid ventricular response and subsequently with slow ventricular response. Patient was given multiple synchronized cardioversion attempts including after amiodarone bolus without successful conversion. Most likely reason for atrial fibrillation is significant sepsis and cardiogenic shock. Patient being transferred to [facility] in critical condition.
[2020-08-30 13:56] LABS: ABG Refer to POC result
--- NOTE | 2020-08-30 16:19 | PC.NURSE ---
Around 0900 patient transferred from [facility] Upon arrival to the unit patient was anxious and tachypneic with HR of 51 and BP 49/31. Levophed drip started. STEMI on EKG. MD, RT, and cardiology at bedside decision to intubated. See resuscitation report for med times. Intubated 7.5 and 25 at the lip. TLC to RIJ placed by MD. CXR completed for placement. TPA administered per cardiology. Attempt to cardiovert x3. EKG obtained and reviewed by cardiology. Transfer to [facility], report given to RN Page on Daily 15. Report given to life flight crew. Daughter notified, came to unit, spoke to MD, and aware of transfer.
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
== END 2020-08-30 17:12 | disposition skilled nursing facility (03) | DRG 208 ==
LOC: HO.ED 08-21 02:12 → HO.EDOVER 08-21 11:26 → HO.IMC 08-21 18:04 → HO.ICU 08-30 08:31
PROVIDERS: Internal Medicine; Nurse Practitioner Acute Care; Physician Assistant Medical; Admitting Provider Family Medicine; Emergency Provider Emergency Medicine Emergency Medical Services; PCP Internal Medicine; Visit Provider Internal Medicine
DX: U07.1 COVID-19 (principal); J96.01 Acute respiratory failure with hypoxia; I21.29 ST elevation (STEMI) myocardial infarction involving other sites; A41.9 Sepsis, unspecified organism; N17.9 Acute kidney failure, unspecified; D69.6 Thrombocytopenia, unspecified; D72.819 Decreased white blood cell count, unspecified; G83.24 Monoplegia of upper limb affecting left nondominant side; I95.9 Hypotension, unspecified; I48.91 Unspecified atrial fibrillation; M54.12 Radiculopathy, cervical region; R74.01 Elevation of levels of liver transaminase levels; E78.5 Hyperlipidemia, unspecified; Z79.1 Long term (current) use of non-steroidal anti-inflammatories (NSAID); Z79.891 Long term (current) use of opiate analgesic; Z79.899 Other long term (current) drug therapy
CPT/HCPCS: 36415; 36600; 71045; 71250; 71275; 72126; 73030; 80048; 80076; 83605; 84484; 85007; 85025; 85027; 85379; 86140; 87040; 87077; 87186; 87205; 87635; 93005; 94002; 94003; 96374; 97110; 97112; 97116; 97162; 97167; 97530; 97535; 99284; 99285; J0171; J0282; J0461; J0696; J1100; J1650; J2060; J2250; J2270; J2997; J3370; Q9967